=== PATIENT | male | born 1985 | race Caucasian/White ===

== ENCOUNTER 2020-06-15 22:21 | Emergency (ER) | payer BC ==
[~2020-06-15] VITALS: Ht 185.4 cm; Wt 93.0 kg
[2020-06-15 22:26] VITALS: BP 144/76
== END 2020-06-16 00:11 | disposition home or self-care (01) ==
LOC: ER 22:21
DX: S61.216A Laceration without foreign body of right little finger without damage to nail, initial encounter (principal); S61.214A Laceration without foreign body of right ring finger without damage to nail, initial encounter; W21.03XA Struck by baseball, initial encounter; Y93.64 Activity, baseball; Y92.89 Other specified places as the place of occurrence of the external cause; Y99.8 Other external cause status